=== PATIENT | female | born 1960 | race Caucasian/White ===

== ENCOUNTER 2019-02-08 22:34 | Emergency (ER) | payer OTHER ==
[~2019-02-08] VITALS: Ht 154.9 cm; Wt 113.6 kg
[~2019-02-08 22:34] MED LIST: ADV100 IH; ALBU17AE27 IH; CALC0.253 PO; CALC500T62 PO; GABA-531 PO; IBUP-2077 PO; LEVO200 PO; LISI20TA PO; MECL-111 PO; METF-444 PO; OMEP20 PO; TIOT185 IH
[2019-02-08] MEDS ORDERED: ASPI81TA39 PO (22:39)
[2019-02-08 23:06] LABS: GLUCOSE,POINT OF CARE 147 MG/DL (70-110)
[2019-02-08] MEDS ORDERED: BACITRACIN 0.9 GM PACKET OINTMENT TP ONE (23:15)
[2019-02-08] MEDS ORDERED: ACETAMINOPHEN 500 MG TABLET PO ONE (23:15)
[2019-02-08] MEDS ORDERED: CEPHALEXIN MONOHYDRATE 500 MG CAPSULE PO ONE (23:15)
[2019-02-08] MEDS ORDERED: PERTUSS(ACELL),DIPH,TET VAC/PF 0.5 ML VIAL IM ONE (23:15)
[2019-02-08] MEDS ORDERED: IBUPROFEN 800 MG TABLET PO ONE (23:30)
[2019-02-09 00:05] VITALS: BP 142/76
== END 2019-02-09 00:32 | disposition home or self-care (01) ==
LOC: EMS 22:35
DX: S61.011A Laceration without foreign body of right thumb without damage to nail, initial encounter (principal); J44.9 Chronic obstructive pulmonary disease, unspecified; E11.9 Type 2 diabetes mellitus without complications; I10 Essential (primary) hypertension; I25.2 Old myocardial infarction; F17.290 Nicotine dependence, other tobacco product, uncomplicated; Z88.2 Allergy status to sulfonamides; Z91.040 Latex allergy status; Z79.82 Long term (current) use of aspirin; W45.8XXA Other foreign body or object entering through skin, initial encounter; Y93.89 Activity, other specified; Y92.89 Other specified places as the place of occurrence of the external cause; Y99.8 Other external cause status
CPT/HCPCS: 90471; 90715; 99406

== ENCOUNTER 2020-11-06 21:14 | Emergency (ER) | payer OTHER ==
[~2020-11-06] VITALS: Ht 154.9 cm; Wt 115.5 kg
[~2020-11-06 21:14] MED LIST changes: -ADV100 IH; +ASPI81TA39 PO; +FLUT1DIS4 IH; +GABA-1181 PO; -GABA-531 PO; -MECL-111 PO; +MECL-160 PO
[2020-11-06 21:44] LABS: GLUCOSE,POINT OF CARE 104 MG/DL (70-110)
[2020-11-07] MEDS ORDERED: ACETAMINOPHEN 325 MG TABLET PO ONE (00:30)
[2020-11-07 02:00] VITALS: BP 117/75
== END 2020-11-07 02:05 | disposition home or self-care (01) ==
LOC: EMS 21:14
DX: R60.0 Localized edema (principal); I10 Essential (primary) hypertension; E11.9 Type 2 diabetes mellitus without complications; J44.9 Chronic obstructive pulmonary disease, unspecified; Z88.2 Allergy status to sulfonamides; Z91.040 Latex allergy status; Z79.899 Other long term (current) drug therapy
CPT/HCPCS: 82962; 93971; 99284

== ENCOUNTER 2022-06-18 11:46 | Emergency (ER) | payer OTHER ==
[~2022-06-18] VITALS: Ht 154.9 cm; Wt 111.4 kg
[2022-06-18 12:03] LABS: COVID AG,FIA SOURCE NASAL SWAB
[2022-06-18 12:37] LABS: INFLUENZA TYPE A NEGATIVE FOR TYPE A (NEGATIVE); INFLUENZA TYPE B NEGATIVE FOR TYPE B (NEGATIVE)
[2022-06-18] MEDS ORDERED: ALBUTEROL SULFATE 2.5 MG/0.5 ML NEB SOLUTION NEB ONE (15:15)
[2022-06-18] MEDS ORDERED: PredniSONE 20 MG TABLET PO ONE (15:15)
[2022-06-18] MEDS ORDERED: IPRATROPIUM BROMIDE 0.5 MG/2.5 ML NEB SOLUTION NEB ONE (15:15)
[2022-06-18] MEDS ORDERED: FLUT1BLS9 IH (15:22)
[2022-06-18] MEDS ORDERED: CETI10TA58 PO (15:22)
[2022-06-18] MEDS ORDERED: CLOT15CR23 TP (15:22)
[2022-06-18] MEDS ORDERED: OS500 PO (15:22)
[2022-06-18] MEDS ORDERED: PIOG30TA70 PO (15:22)
[2022-06-18] MEDS ORDERED: DICL100G31 TP (15:22)
[2022-06-18] MEDS ORDERED: ALBU8HFA IH (15:22)
[2022-06-18] MEDS ORDERED: TIOT4MIS2 IH (15:22)
[2022-06-18] MEDS ORDERED: FAMO20 PO (15:22)
[2022-06-18] MEDS ORDERED: CYCL-448 PO (15:22)
[2022-06-18] MEDS ORDERED: SIMV-43 PO (15:22)
[2022-06-18] MEDS ORDERED: LISI20TA24 PO (15:22)
[2022-06-18] MEDS ORDERED: LEVO175T9 PO ×2 (15:22)
[2022-06-18 16:18] VITALS: BP 144/70
[2022-06-18] MEDS ORDERED: PRED-554 PO (16:35)
[2022-06-18] MEDS ORDERED: AZIT250T9 PO (16:35)
== END 2022-06-18 17:09 | disposition home or self-care (01) ==
LOC: EMS 11:53
DX: J44.9 Chronic obstructive pulmonary disease, unspecified (principal); I10 Essential (primary) hypertension; E11.9 Type 2 diabetes mellitus without complications; Z88.2 Allergy status to sulfonamides; Z91.040 Latex allergy status; Z79.899 Other long term (current) drug therapy; Z20.822 Contact with and (suspected) exposure to COVID-19
CPT/HCPCS: 99284; 71046; 87426; 82962; 87804; 94640; J7512; J7613

== ENCOUNTER 2022-09-30 16:47 | Emergency (ER) | payer OTHER ==
[~2022-09-30] VITALS: Ht 154.9 cm; Wt 116.4 kg
[~2022-09-30 16:47] MED LIST changes: -ALBU17AE27 IH; +ALBU18HF12 IH; -CALC500T62 PO; +CETI10TA58 PO; +CLOT15CR23 TP; +CYCL-448 PO; +DICL100G31 TP; +FAMO20 PO; +FLUT1BLS9 IH; -FLUT1DIS4 IH; +LEVO175T9 PO; -LEVO200 PO; -LISI20TA PO; +LISI20TA24 PO; -OMEP20 PO; +OS500 PO; +PIOG30TA70 PO; +PRED-554 PO; +SIMV-43 PO; -TIOT185 IH; +TIOT4MIS2 IH
[2022-09-30 22:11] LABS: BASOPHILS % (AUTO) 0.7 % (0.0-2.0); EOSINOPHILS % (AUTO) 1.8 % (1.0-6.0); HEMATOCRIT 37.2 % (36-46); HEMOGLOBIN 11.8 g/dL (12.0-16.0); LYMPHOCYTES # (AUTO) 2.1 K/uL (1.0-4.8); LYMPHOCYTES % (AUTO) 33.6 % (22.0-44.0); MEAN CORPUSCULAR HEMOGLOBIN 28.2 pg (26.0-34.0); MEAN CORPUSCULAR HGB CONC 31.8 G/dL (31.0-37.0); MEAN CORPUSCULAR VOLUME 89 fL (80-100); MONOCYTES # (AUTO) 0.4 K/uL (0.1-1.0); MONOCYTES % (AUTO) 6.9 % (2.0-9.0); NEUTROPHILS # (AUTO) 3.6 K/uL (1.8-7.7); PLATELET COUNT (AUTO) 362 K/uL (150-450); RED BLOOD CELL COUNT(AUTO) 4.19 MIL/uL (4.00-5.20); RED CELL DISTRIBUTION WIDTH 17.5 % (11.5-14.5)
[2022-09-30 22:21] LABS: ANION GAP 7 mmol/L (8-16); CALCIUM, TOTAL 9.1 mg/dL (8.8-10.5); CARBON DIOXIDE 30 mmol/L (22-29); CHLORIDE 105 mmol/L (98-107); CREATININE 0.64 mg/dL (0.60-1.30); GLOMERULAR FILTR. RATE CALC > 60 mL/min (>60); GLUCOSE,RANDOM 122 mg/dL (70-110); POTASSIUM 4.8 mmol/L (3.5-5.1); SODIUM SERUM 142 mmol/L (136-145)
[2022-09-30 23:07] VITALS: BP 121/73
[2022-09-30] MEDS ORDERED: GABA-1181 PO (23:09)
[2022-09-30 23:31] LABS: GLUCOSE,POINT OF CARE 94 MG/DL (70-110)
== END 2022-09-30 23:13 | disposition home or self-care (01) ==
LOC: EMS 16:47
DX: R22.42 Localized swelling, mass and lump, left lower limb (principal); E11.9 Type 2 diabetes mellitus without complications; I10 Essential (primary) hypertension; M79.7 Fibromyalgia; J44.9 Chronic obstructive pulmonary disease, unspecified; I25.2 Old myocardial infarction; Z85.850 Personal history of malignant neoplasm of thyroid; Z90.49 Acquired absence of other specified parts of digestive tract; Z88.2 Allergy status to sulfonamides; Z91.040 Latex allergy status; Z79.899 Other long term (current) drug therapy
CPT/HCPCS: 80048; 82962; 85025; 93971; 99284

== ENCOUNTER 2024-05-23 01:43 | Emergency (ER) | payer MEDICARE, OTHER ==
[~2024-05-23] VITALS: Ht 152.4 cm; Wt 113.6 kg
[~2024-05-23 01:43] MED LIST changes: -DICL100G31 TP; +DICL2100G TP; +FLUT1BLS19 IH; -FLUT1BLS9 IH; -MECL-160 PO; +MECL-302 PO
[2024-05-23 01:44] VITALS: TEMP 98.7
[2024-05-23] MEDS ORDERED: ALBUTEROL SULFATE 2.5 MG/0.5 ML NEB SOLUTION NEB ONE (02:15)
[2024-05-23] MEDS: PredniSONE 20 MG TABLET PO ONE (02:21)
[2024-05-23 02:35] VITALS: PULSE 88; RESP 22; O2SAT 100
[2024-05-23] MEDS: IPRATROPIUM BROMIDE 0.5 MG/2.5 ML NEB SOLUTION NEB ONE (02:35)
[2024-05-23] MEDS: ALBUTEROL SULFATE 2.5 MG/0.5 ML NEB SOLUTION NEB ONE (02:35)
[2024-05-23 02:36] LABS: COVID AG,FIA SOURCE NASAL SWAB
[2024-05-23 02:41] LABS: BASOPHILS % (AUTO) 0.5 % (0.0-2.0); EOSINOPHILS % (AUTO) 0.2 % (1.0-6.0); HEMATOCRIT 40.5 % (36-46); HEMOGLOBIN 13.7 g/dL (12.0-16.0); LYMPHOCYTES # (AUTO) 0.7 K/uL (1.0-4.8); LYMPHOCYTES % (AUTO) 10.9 % (22.0-44.0); MEAN CORPUSCULAR HEMOGLOBIN 31.2 pg (26.0-34.0); MEAN CORPUSCULAR HGB CONC 33.7 G/dL (31.0-37.0); MEAN CORPUSCULAR VOLUME 93 fL (80-100); MONOCYTES # (AUTO) 0.5 K/uL (0.1-1.0); MONOCYTES % (AUTO) 8.2 % (2.0-9.0); NEUTROPHILS # (AUTO) 5.2 K/uL (1.8-7.7); NEUTROPHILS % (AUTO) 80.2 % (40.0-70.0); PLATELET COUNT (AUTO) 202 K/uL (150-450); RED BLOOD CELL COUNT(AUTO) 4.38 MIL/uL (4.00-5.20); RED CELL DISTRIBUTION WIDTH 14.2 % (11.5-14.5); WHITE BLOOD COUNT (AUTO) 6.5 K/uL (4.5-11.0)
[2024-05-23] MEDS ORDERED: 0.9% SODIUM CHLORIDE 15 ML NEB SOLUTION NEB ONE (02:48)
[2024-05-23 03:13] LABS: SARS-COV2 (COVID) ANTIGEN,FIA Negative (Negative)
[2024-05-23 03:14] LABS: ANION GAP 8 mmol/L (8-16); CALCIUM, TOTAL 8.7 mg/dL (8.8-10.5); CARBON DIOXIDE 28 mmol/L (22-29); CHLORIDE 101 mmol/L (98-107); CREATININE 0.86 mg/dL (0.60-1.30); GLOMERULAR FILTR. RATE CALC > 60 mL/min (>60); GLUCOSE,RANDOM 170 mg/dL (70-110); POTASSIUM 4.2 mmol/L (3.5-5.1); SODIUM SERUM 137 mmol/L (136-145); UREA NITROGEN, BLOOD 13 mg/dL (7-18)
[2024-05-23 03:14] LABS: INFLUENZA TYPE A NEGATIVE FOR TYPE A (NEGATIVE); INFLUENZA TYPE B NEGATIVE FOR TYPE B (NEGATIVE)
[2024-05-23] MEDS ORDERED: IPRA30SP2 NASAL (04:13)
[2024-05-23] MEDS ORDERED: BENZ-227 PO (04:13)
[2024-05-23 04:56] VITALS: BP 101/55; PULSE 86; RESP 22; O2SAT 95
== END 2024-05-23 04:58 | disposition home or self-care (01) ==
LOC: EMS 01:43
DX: J44.89 Other specified chronic obstructive pulmonary disease (principal); J06.9 Acute upper respiratory infection, unspecified; B97.89 Other viral agents as the cause of diseases classified elsewhere; E11.9 Type 2 diabetes mellitus without complications; I10 Essential (primary) hypertension; Z79.51 Long term (current) use of inhaled steroids; Z79.52 Long term (current) use of systemic steroids; Z79.82 Long term (current) use of aspirin; Z79.84 Long term (current) use of oral hypoglycemic drugs; Z79.899 Other long term (current) drug therapy; Z85.850 Personal history of malignant neoplasm of thyroid; Z88.2 Allergy status to sulfonamides; Z90.49 Acquired absence of other specified parts of digestive tract; Z20.822 Contact with and (suspected) exposure to COVID-19
CPT/HCPCS: 99284; 71045; 87426; 80048; 85025; 87804; 36415; 94640; J7512; J7613